=== PATIENT | male | born 1985 | race Caucasian/White ===

== ENCOUNTER 2020-06-05 01:20 | Outpatient (CLI) | payer OTHER, SELFPAY ==
[2020-06-05 20:05] LABS: SARS-CoV-2 RNA PCR Negative
== END 2020-06-05 01:21 | disposition home or self-care (01) ==
LOC: ANHCOVIDDT 01:20
PROVIDERS: Visit Provider Internal Medicine Gastroenterology
DX: Z01.812 Encounter for preprocedural laboratory examination (principal); Z11.59 Encounter for screening for other viral diseases
CPT/HCPCS: 87635; C9803; U0003

== ENCOUNTER 2020-06-08 00:53 | Day surgery (SDC) | payer OTHER, SELFPAY ==
[2020-06-04 09:48] VITALS: BMI 27.8
[2020-06-08 08:04] VITALS: BP 128/90; PULSE 77; RESP 18; O2SAT 100
--- NOTE | 2020-06-08 08:07 | WPDANESEPPF ---
Anes - Initial Pre Proc Eval Procedure: Operation Date: 06/08/20 09:00 Proposed Procedures p Colonoscopy - Harry Méndez MD Date/Time: 06/08/20 08:07 Surgeon: Harry Méndez MD Pre Op Diagnosis: bloody stools Patient Data Age: 34 Gender: M Height: 1.83 m Weight: 86.1 kg Last Vital Signs Pulse 77 06/08/20 08:04 Resp 18 06/08/20 08:04 BP 128/90 06/08/20 08:04 Pulse Ox 100 06/08/20 08:04 Allergies Allergy/AdvReac Type Severity Reaction Status Date / Time No Known Allergies Allergy Verified 06/08/20 07:57 Home Medications Medication Instructions Recorded Confirmed Type cetirizine [All Day Allergy 10 mg PO DAILY PRN 06/04/20 06/04/20 History (cetirizine)] empagliflozin [Jardiance] 10 mg PO DAILY 06/04/20 06/04/20 History insulin degludec [Tresiba 16 unit SUBCUT DAILY 06/04/20 06/04/20 History FlexTouch U-200] metformin 500 mg PO BID 06/04/20 06/04/20 History omeprazole 20 mg PO PRN PRN 06/04/20 06/04/20 History rosuvastatin 10 mg PO DAILY 06/04/20 06/04/20 History Patient hx anesthesia problems: none Family hx anesthesia problems: none [facility] Past Medical History Medical History (Updated 06/08/20 @ 08:08 by Oj Baker MD) Diabetes Gastroesophageal reflux disease Hypercholesterolemia Anes - Eval Final PreProcedure Day of Procedure 06/08/20 08:07 Patient weight: normal Heart: regular rate and rhythm Lungs: clear to auscultation and normal air movement Airway: Mallampati scale class II Neurological: alert and oriented Last oral intake: >/= 8 hours ASA classification: III Emergent: no Anesthetic plan: proceed Anesthesia type and monitoring: general GIVS Informed Consent: The patient's anesthetic plan and its attendant risks and benefits were discussed with the patient/family/POA. Questions were solicited and answers provided to the satisfaction of the patient/family/POA.
--- NOTE | 2020-06-08 08:14 | WPDGICN ---
Assessment and Plan Assessment and plan (1) Blood in stool, joshua: Code(s): K92.1 - Melena Status: Acute Assessment and Plan: Patient is ongoing bloody stools. Associated with crampy abdominal pain. Plan is for a high-fiber diet. Colonoscopy will be performed search for organic disease in the lower GI tract. Further recommendations will be given after endoscopy. GI Consult Note Consult date/time: 06/08/20 08:14 HPI: Sai Florence is a 34 year old male seen in evaluation at the request of [employer] Scarlett Nick. Patient reports bloody stools the been present for the last 2 months. He describes this as being rather persistent. Described as darkish red admixed with bowel movements. He notices concomitant abdominal cramping and pain. His bowel habits are have a tendency towards hard stools in mild constipation. Denies any weight loss. His appetite has remained the same. Past medical history is significant for diabetes. He states he did have rectal bleeding many years ago but not recurred until just recently. His family history is noncontributory. There is no family history of colon or rectal disease is mother did have breast cancer. Review of Systems Review of Systems: All systems reviewed & are unremarkable except as noted in HPI and below PMFSH Past Medical History Medical History Diabetes Gastroesophageal reflux disease Hypercholesterolemia Meds Home Medications and Allergies Home Medications Medication Instructions Recorded Confirmed Type cetirizine [All Day Allergy 10 mg PO DAILY PRN 06/04/20 06/04/20 History (cetirizine)] empagliflozin [Jardiance] 10 mg PO DAILY 06/04/20 06/04/20 History insulin degludec [Tresiba 16 unit SUBCUT DAILY 06/04/20 06/04/20 History FlexTouch U-200] metformin 500 mg PO BID 06/04/20 06/04/20 History omeprazole 20 mg PO PRN PRN 06/04/20 06/04/20 History rosuvastatin 10 mg PO DAILY 06/04/20 06/04/20 History Allergies Allergy/AdvReac Type Severity Reaction Status Date / Time No Known Allergies Allergy Verified 06/08/20 07:57 Vital Signs Vital Signs - 24 hr 06/08/20 08:04 Pulse Rate 77 Respiratory Rate 18 Blood Pressure 128/90 Pulse Oximetry 100 Exam Narrative: Exam Narrative: Physical exam reveals patient to be alert. Vital signs stable. HEENT exam unremarkable. Lungs are clear to auscultation and percussion. Heart is without murmur or extra sounds. Abdominal exam bowel sounds are present soft nontender with no organomegaly. Digital external rectal exam is normal.
[2020-06-08 08:31] LABS: Glucose Point of Care 166 (65-105)
[2020-06-08] MEDS: LACTATED RINGERS 1,000 ML 150 ML IV CONT (08:32)
[2020-06-08] MEDS: SIMETHICONE ORAL SUSPENSION 20 MG/0.3 ML 30 ML BOTTLE 0.6 ML IRRIGATION (09:10)
[2020-06-08 09:17] VITALS: BP 114/82; PULSE 81; RESP 20; O2SAT 95
[2020-06-08 09:27] VITALS: BP 112/81; PULSE 81; RESP 23; O2SAT 100
[2020-06-08 09:37] VITALS: BP 124/87; PULSE 77; RESP 19; O2SAT 100
[2020-06-08 09:53] LABS: Glucose Point of Care 165 (65-105)
== END 2020-06-08 10:01 | disposition home or self-care (01) ==
PROVIDERS: PCP Registered Nurse; Visit Provider Internal Medicine Gastroenterology
PROC: 0DJD8ZZ Inspection of Lower Intestinal Tract, Via Natural or Artificial Opening Endoscopic (ICD-10-PCS; CPT 45378; principal; 2020-06-08 09:00)
DX: K92.1 Melena (principal); K64.8 Other hemorrhoids; E11.9 Type 2 diabetes mellitus without complications; E78.00 Pure hypercholesterolemia, unspecified; K21.9 Gastro-esophageal reflux disease without esophagitis; Z79.4 Long term (current) use of insulin; Z79.84 Long term (current) use of oral hypoglycemic drugs
CPT/HCPCS: 45378; J2704; J7120